=== PATIENT | female | born 1940 | race African-American/Black ===

== ENCOUNTER 2016-07-02 13:11 | Emergency (ER) | payer OTHER ==
[~2016-07-02] VITALS: Ht 162.6 cm; Wt 60.0 kg
[2016-07-02] MEDS ORDERED: ATOR10TA69 PO (13:15)
[2016-07-02] MEDS ORDERED: SODIUM CHLORIDE 0.9% 500 ML IV ONE (13:52)
[2016-07-02 15:57] LABS: BASOPHILS % 0.8 % (0.0-2.0); HEMATOCRIT. 30.2 % (36.0-48.0); HEMOGLOBIN. 10.3 g/dL (12.0-16.0); LYMPHOCYTES % 8.6 % (20.0-50.0); MEAN CORPUSCULAR HEMOGLOBIN 27.3 pg (28.0-32.0); MEAN CORPUSCULAR HGB CONC 34.1 g/dL (31.0-37.0); MEAN CORPUSCULAR VOLUME 80.1 fL (81.0-99.0); MEAN PLATELET VOLUME 8.5 fl (7.4-10.4); MONOCYTES % 4.2 % (2.0-8.0); NEUTROPHILS % 86.4 % (40.0-76.0); PLATELET 298 x1000/uL (130-400); RED BLOOD CELL COUNT 3.76 mill/uL (4.2-5.4); RED CELL DISTRIBUTION WIDTH 15.2 % (11.6-14.6); WHITE BLOOD COUNT 12.8 x1000/uL (4.5-11.0)
[2016-07-02 16:02] LABS: PROTHROMBIN TIME 10.5 sec
[2016-07-02 16:04] LABS: CHLORIDE 108 mEq/L (98-107); INDEX HEMOLYSI 1 (1-3); INDEX ICTERIC 1 (1-4); INDEX LIPEMIC 1 (1-3)
[2016-07-02 16:08] LABS: ALBUMIN 3.3 g/dL (3.4-5.0); ANION GAP 17; CALCIUM 8.7 mg/dL (8.5-10.1); CARBON DIOXIDE 22 mEq/L (21-32); UREA NITROGEN BLOOD 38 mg/dL (7-21)
[2016-07-02 16:10] LABS: AMMONIA 17 uMol/L (<32); INDEX HEMOLYSI 1 (1-3)
[2016-07-02 16:14] LABS: ALANINE AMINOTRANSFERASE 57 IU/L (13-61); ETHANOL BLOOD < 10 mg/dL; TROPONIN I 0.04 ng/mL (0.00-0.04); eGFR 38 mL/min (>60)
[2016-07-02 16:23] LABS: CREATINE KINASE 2644 IU/L (26-192); THYROID STIMULATING HORMONE 0.57 uIU/mL (0.36-3.74)
[2016-07-02 17:01] LABS: CLARITY URINE CLEAR (CLEAR); COLOR URINE YELLOW (YELLOW); GLUCOSE URINE NEGATIVE (NEGATIVE); KETONES URINE NEGATIVE (NEGATIVE); LEUKOCYTE ESTERASE URINE NEGATIVE (NEGATIVE); NITRITE URINE NEGATIVE (NEGATIVE); OCCULT BLOOD URINE 2+ (NEGATIVE); PH URINE 6.5 (4.5-8.0); PROTEIN URINE 2+ (NEGATIVE); UROBILINOGEN URINE 0.2 E.U./dL (0.2-1.0)
[2016-07-02 17:18] LABS: *AMPHETAMINES SCREEN URINE NEGATIVE (NEGATIVE); *BARBITURATES SCREEN URINE NEGATIVE (NEGATIVE); *BENZODIAZEPINES SCREEN URINE NEGATIVE (NEGATIVE); *COCAINE SCREEN URINE NEGATIVE (NEGATIVE); CANNABINOID URINE SCREEN NEGATIVE (NEGATIVE); ECSTASY MDMA SCREEN URINE NEGATIVE (NEGATIVE); METHADONE URINE SCREEN NEGATIVE (NEGATIVE); OPIATES URINE SCREEN NEGATIVE (NEGATIVE); PHENCYCLIDINE URINE SCREEN NEGATIVE (NEGATIVE)
[2016-07-02 17:30] LABS: BACTERIA URINE TRACE; RBC URINE 0-2 /hpf (0-2); SQUAMOUS EPITHELIAL CELL URINE FEW /lpf (RARE/1+); WBC URINE 0-2 /hpf (0-2)
[2016-07-02] MEDS ORDERED: DEXTROSE 50% WATER 50ML SYRINGE IV ONE ×2 (18:10→18:15)
[2016-07-02 18:13] VITALS: BP 146/72
== END 2016-07-02 18:41 | disposition short-term general hospital (02) ==
LOC: ER 13:18
DX: G93.41 Metabolic encephalopathy (principal); E16.2 Hypoglycemia, unspecified; R53.1 Weakness; M62.82 Rhabdomyolysis; E86.0 Dehydration; E11.9 Type 2 diabetes mellitus without complications; E78.00 Pure hypercholesterolemia, unspecified; I10 Essential (primary) hypertension; Z79.899 Other long term (current) drug therapy
CPT/HCPCS: 36415; 70450; 71010; 80053; 80305; 81001; 82140; 82550; 82962; 84443; 84484; 85025; 85610; 93005; 96361; 96374; 99285; G0482; J7040

== ENCOUNTER 2023-03-13 20:35 | Emergency (ER) | payer OTHER ==
[~2023-03-13] VITALS: Ht 160 cm; Wt 54.0 kg
[~2023-03-13 20:35] MED LIST: ATOR10TA69 PO
[2023-03-13 21:12] VITALS: TEMP 98.2; O2SAT 99
[2023-03-13 22:58] LABS: BASOPHILS % 0.4 % (0.0-2.0); HEMATOCRIT. 31.3 % (36.0-48.0); LYMPHOCYTES % 10.5 % (20.0-50.0); MEAN CORPUSCULAR HEMOGLOBIN 29.8 pg (28.0-32.0); MEAN CORPUSCULAR HGB CONC 35.3 g/dL (31.0-37.0); MEAN CORPUSCULAR VOLUME 84.4 fL (81.0-99.0); MEAN PLATELET VOLUME 8.9 fl (7.4-10.4); MONOCYTES % 7.1 % (2.0-8.0); PLATELET 276 x1000/uL (130-400); RED BLOOD CELL COUNT 3.71 mill/uL (4.2-5.4); RED CELL DISTRIBUTION WIDTH 14.6 % (11.6-14.6); WHITE BLOOD COUNT 11.5 x1000/uL (4.5-11.0)
[2023-03-13 23:13] LABS: ALANINE AMINOTRANSFERASE 20 IU/L (10-49); ALBUMIN 3.6 g/dL (3.2-4.8); ASPARTATE AMINOTRANSFERASE 31 IU/L (<34); BILIRUBIN TOTAL 0.4 mg/dL (0.1-1.0); CALCIUM 9.1 mg/dL (8.7-10.4); CARBON DIOXIDE 26 mEq/L (21-32); CHLORIDE 95 mEq/L (98-107); CREATINE KINASE 163 IU/L (34-145); CREATININE 0.8 mg/dL (0.6-1.0); GLUCOSE 77 mg/dL (70-105); SODIUM 129 mEq/L (136-145); TROPONIN I HIGH SENSITIVITY 32 ng/L (3.0-34); UREA NITROGEN BLOOD 19 mg/dL (9-23)
[2023-03-13 23:24] LABS: ETHANOL BLOOD < 10 mg/dL (<10)
[2023-03-13 23:45] LABS: LACTIC ACID 2.7 mmol/L (0.4-2.0)
[2023-03-13] MEDS ORDERED: SODIUM CHLORIDE 0.9% 500 ML IV NR (23:45)
[2023-03-14 03:13] VITALS: BP 119/52; PULSE 84; RESP 19
== END 2023-03-14 03:12 | disposition short-term general hospital (02) ==
LOC: ER 20:35
DX: R62.7 Adult failure to thrive (principal); E86.0 Dehydration; F03.90 Unspecified dementia, unspecified severity, without behavioral disturbance, psychotic disturbance, mood disturbance, and anxiety; E87.20 Acidosis, unspecified; E11.9 Type 2 diabetes mellitus without complications
CPT/HCPCS: 36415; 71045; 80053; 80320; 82550; 83605; 83880; 84484; 85025; 99284; G0480